=== PATIENT | female | born 1945 | race Caucasian/White ===

== ENCOUNTER 2017-05-28 10:42 | Day surgery (SDC) | payer MEDICARE, BC ==
[2017-05-28] VITALS (7 sets, daily range): BP systolic 139–161; BP diastolic 56–69
[~2017-05-28] VITALS: Ht 154.9 cm; Wt 68.0 kg
--- NOTE | 2017-05-28 10:17 | Pre-Procedure Note/Attestation ---
Pre-Procedure Note/Attestation Complete Prior to Procedure Planned Procedure: left - Removal of cataract and placement of intraocular lens , left eye Procedure Narrative: Removal of cataract and placement of intraocular lens, left eye Indications for Procedure Pre-Operative Diagnosis: Cataract, nuclear, left eye Attestation I attest that I discussed the nature of the procedure; its benefits; risks and complications; and alternatives (and the risks and benefits of such alternatives ), prior to the procedure, with the patient (or the patient's legal public utilities sales representative). I attest that, if there was a reasonable possibility of needing a blood transfusion, the patient (or the patient's legal public utilities sales representative) was given the [place] [employer] [facility] standardized written summary, pursuant to the [place] Blood Safety Act ([place] Health and Safety Code # 1645, as amended). I attest that I re-evaluated the patient just prior to the surgery and that there has been no change in the patient's H&P, except as documented below: Regan Suggs MD May 28, 2017 10:17
[~2017-05-28 10:42] MED LIST: ALLOPURINOL100 M1 ORAL; AMLODIPINE BESYL5 MG ORAL; BSS 15ml BTL ONE; BSS 500ml btl ONE; Dexamethasone 4mg/ml vial ONE; EPINEPHrine 1mg/1ml Amp ONE; KLONOPIN1 MG ORAL; Lidocaine 1% MPF 10mg/ml 5ml ONE; Lidocaine 4% Amp ONE; Maxitrol Opth Oint 3.5gm ONE; PANTOPRAZOLE SO40 MG ORAL; Povidone-Iodine 5% opth solution ONE; Pred Forte 1% Opth Susp 1ml ONE; Sodium Hyaluronate 10 mg/ml 0.85ml ONE
[2017-05-28] MEDS ORDERED: Tetracaine 0.5% Opth Soln ONE (11:23)
[2017-05-28] MEDS ORDERED: Akten 3.5% 1ml Btl ONE (11:29)
[2017-05-28] MEDS ORDERED: Phenylephrine 10% Opth Soln 5ml ONE (11:29)
[2017-05-28] MEDS ORDERED: Cyclopentolate 1% Opth Sol ONE (11:29)
[2017-05-28] MEDS ORDERED: Flurbiprofen 0.03% Opth Sol 2.5ml ONE (11:29)
[2017-05-28] MEDS: Akten 3.5% 1ml Btl LEFT EYE SCH ×3 (11:31→12:00)
[2017-05-28] MEDS: Cyclopentolate 1% Opth Sol LEFT EYE SCH ×3 (11:31→12:01)
[2017-05-28] MEDS: Gatifloxacin Opth Solution 0.5% LEFT EYE SCH ×3 (11:32→12:01)
[2017-05-28] MEDS: Phenylephrine 10% Opth Soln 5ml LEFT EYE SCH ×3 (11:32→12:01)
[2017-05-28] MEDS: Flurbiprofen 0.03% Opth Sol 2.5ml LEFT EYE SCH ×3 (11:32→12:01)
[2017-05-28] MEDS ORDERED: CYMBALTA60 MG ORAL (11:42)
[2017-05-28] MEDS ORDERED: DiphenhydrAMINE 50mg/ml Inj ONE (12:23)
[2017-05-28] MEDS ORDERED: LR 1000ml ONE (12:30)
[2017-05-28] MEDS ORDERED: Sterile Water Irrig 1000ml IRRIG ONE (12:30)
[2017-05-28] MEDS ORDERED: fentaNYL 100 mcg/2 mL IV ONE (12:30)
[2017-05-28] MEDS ORDERED: NS Irrig 1000ml ONE (12:30)
[2017-05-28] MEDS ORDERED: Lidocaine 1% MPF 10mg/ml 5ml ONE (12:30)
--- NOTE | 2017-05-28 12:32 | Anethesia Preoperative Eval ---
Anesthesia Pre-op PMH/ROS General Date of Evaluation: May 28, 2017 Anesthesiologist: Jared ASA Score: ASA 2 Mallampati Score Class I : Soft palate, uvula, fauces, pillars visible Class II: Soft palate, uvula, fauces visible Class III: Soft palate, base of uvula visible Class IV: Only hard plate visible Mallampati Classification: Class II Surgeon: Ifeanyi Diagnosis: Left cqataract Surgical Procedure: Left cataract extraction with IOl Anesthesia History: none Family History: no anesthesia problems Allergies: Coded Allergies: LATEX (Verified Allergy, Severe, rash/itch, 05/28/17) SKIN RASH AND ITCHING PENICILLINS (Verified Allergy, Severe, rash, 01/09/14) CEPHALOSPORINS (Verified Allergy, Unknown, family hx of stops breathing, ) Uncoded Allergies: cephalosporin (Allergy, Unknown, 05/28/17) FAMILY HX OF STOP BREATHING Medications: see eMAR Past Medical History Cardiovascular: Reports: HTN, other - HLD, Denies: CAD, [place], arrhythmia, valve dz Pulmonary: Denies: COPD, JEFF, asthma, other Gastrointestinal/Genitourinary: Reports: GERD, Denies: CRI, ESRD, other Neurologic/Psychiatric: Reports: depression/anxiety, Denies: CVA, TIA, dementia, other Endocrine: Reports: hypothyroidism, Denies: DM, other, steroids HEENT: Denies: LUMBEE (L), L[place] (R), cataract (L), cataract (R), glaucoma, other Hematology/Immune: Reports: anemia, Denies: DVT, bleeding disorder, other Musculoskeletal/Integumentary: Reports: OA, Denies: DDD, DJD, RA, edema, other PSxH Narrative: T&A, right cataract, ovarian cystectomy Anesthesia Pre-op Phys. Exam Physician Exam Last Vital Signs Date Time Temp Pulse Resp B/P Pulse Ox O2 Delivery O2 Flow Rate FiO2 05/28/17 12:05 98.2 58 20 144/56 96 Room Air Constitutional: NAD Cardiovascular: RRR Respiratory: CTA Airway Exam Mallampati Score: Class II MO: limited ROM: limited Anesthesia Pre-op A/P Labs see chart Studies Pre-op Studies: EKG - sr Risk Assessment & Plan Assessment: ASA II Plan: MAC Status Change Before Surgery: No Pre-Antibiotics Drug: N/A BEVERLY SEVILLA M.D. May 28, 2017 12:32
--- NOTE | 2017-05-28 12:33 | Immediate Post-Op Evaluation ---
Immediate Post-Op Evalulation Immediate Post-Op Evalulation Procedure: Left cataract extraction with IOL Date of Evaluation: May 28, 2017 Time of Evaluation: 13:40 IV Fluids: 200 Blood Products: 0 Estimated Blood Loss: 0 Urinary Output: 0 Blood Pressure Systolic: 161 Blood Pressure Diastolic: 58 Pulse Rate: 62 Respiratory Rate: 19 O2 Sat by Pulse Oximetry: 95 Temperature (Fahrenheit): 97.7 Pain Score (1-10): 0 Nausea: No Vomiting: No Complications 0 Patient Status: awake, reacts, patent, none Hydration Status: adequate Drug: N/a BEVERLY SEVILLA M.D. May 28, 2017 12:33
--- NOTE | 2017-05-28 13:38 | 48 Hour Post Anesthesia Eval ---
Post Anesthesia Evaluation Procedure: Left cataract extraction with IOL Date of Evaluation: May 28, 2017 Blood Pressure Systolic: 148 0: 65 Pulse Rate: 61 Respiratory Rate: 18 Temperature (Fahrenheit): 98 O2 Sat by Pulse Oximetry: 97 Airway: patent Nausea: No Vomiting: No Pain Intensity: 0 Hydration Status: adequate Cardiopulmonary Status: at baseline Mental Status/LOC: patient returned to baseline Post-Anesthesia Complications: 0 Follow-up care needed: ready to discharge BEVERLY SEVILLA M.D. May 28, 2017 13:38
--- NOTE | 2017-05-28 13:49 | Discharge Instructions ---
Discharge Instructions Discharge Instructions Follow Up Orders Wear shield at all times except to place eye drops Continue preop eye drops Followup tomorrow in Dr Suggs's office For Congestive Heart Failure Reminder Report to your physician any weight gain of 5 pounds or more in one week. Regan Suggs MD May 28, 2017 13:49
--- NOTE | 2017-05-28 15:06 | Brief Operative Note ---
Immediate Post Operative Note Operative Note Pre-op Diagnosis: Cataract, nuclear, left eye Procedure: phaco pc iol, OS Post-op Diagnosis: +3-4 nuclear sclerosis, +3-4 posterior subcapsular cataract, +3 cortical cataract Surgeon: Amparo Suggs MD Anesthesiologist: Dr Perkins Anesthesia: local, MAC Specimen: none Complications: none Estimated Blood Loss: minimal Implant(s) used?: Yes - yaphank [id number] 21.5 Regan Suggs MD May 28, 2017 15:06
--- NOTE | 2017-05-29 01:02 | Operative Note - Dictated ---
DATE OF OPERATION: 05/28/2017 SURGEON: Regan Suggs M.D. CREW SCHEDULER: None. ANESTHESIOLOGIST: Dr. Perkins. ANESTHESIA: Local/standby/monitored anesthesia care. PREOPERATIVE DIAGNOSIS: Cataract, nuclear, left eye. POSTOPERATIVE DIAGNOSIS: Cataract, nuclear, left eye. PROCEDURE: 1. Phacoemulsification of cataract, left eye. 2. Placement of posterior chamber intraocular lens, left eye (model Haq, [id number], power 21.5). SPECIMENS: None. COMPLICATIONS: None. INDICATIONS FOR SURGERY: The patient has had the painless progressive decrease in visual acuity in the left eye secondary to cataract. The patient understands risks of surgery including infection, bleeding, need for further surgery, loss of vision, no improvement in vision, loss of the eye, loss of life, glaucoma, retinal detachment, understands these risks and elects to proceed with surgery. FINDINGS: The patient had a +3 to 4 nuclear sclerotic cataract as well as a +3 to 4 posterior subcapsular cataract and a +3 cortical cataract. Operative Note: After informed consent was obtained, the patient was brought into the operating room placed in the supine position. Cardiac and respiratory monitors were attached. A time-out was performed and all criteria were met and everyone in the room agreed. The eye was then draped and prepped in a sterile manner for ocular surgery. A lid speculum was placed in the eye. A 1% lidocaine preservative-free was injected at the approximate 2 o'clock limbus. A conjunctiva peritomy from approximately 1 o'clock to 2:30 was made and dissected posteriorly. Hemostasis was maintained with bipolar cautery. A 2.6 mm limbal incision was made centered approximately 2 o'clock and dissected anteriorly. Paracentesis was made at approximately 5:30 and Shugarcaine was injected into the anterior chamber followed by Healon. The anterior chamber was then entered using a 2.6 mm keratome through the limbal incision. An anterior capsulorrhexis was then performed. Hydrodissection and hydrodelineation of the lens was then performed. The lens was then phacoemulsified using divide and conquer four-quadrant technique. Residual cortical material was then aspirated. Healon was injected into the anterior chamber and capsular bag. The lens was taken from its package, placed into the cartridge and the tip of the cartridge was placed through the limbal incision. The lens was injected into the capsular bag and centered nicely with a [place] hook. The optic and both haptics were in the capsular bag. Healon was then aspirated from the anterior chamber and capsular bag and again the optic and haptics were noted to be in the capsular bag. The limbal incision was closed with 10-0 nylon interrupted suture. The knot was rotated and buried. Care was taken during the entire procedure not to touch the endothelium. The wounds were checked and found to be watertight. The conjunctiva was then closed with forceps cautery. The lid speculum and drapes were removed from the eye. Drops of Pred Forte and moxifloxacin were applied to the eye followed by Maxitrol ointment and a shield. The patient tolerated the procedure well and left the operating room in awake, alert and stable condition. Regan Suggs M.D. DR: SYLVIA JOB#: [id number] CC:
== END 2017-05-28 14:50 | disposition home or self-care (01) ==
LOC: SUR 10:42
DX: H25.812 Combined forms of age-related cataract, left eye (principal); E78.5 Hyperlipidemia, unspecified; E66.3 Overweight; M26.609 Unspecified temporomandibular joint disorder, unspecified side; E06.3 Autoimmune thyroiditis; E21.3 Hyperparathyroidism, unspecified; M48.00 Spinal stenosis, site unspecified; I10 Essential (primary) hypertension; K21.9 Gastro-esophageal reflux disease without esophagitis; F32.9 Major depressive disorder, single episode, unspecified; F41.9 Anxiety disorder, unspecified; E03.9 Hypothyroidism, unspecified; M19.90 Unspecified osteoarthritis, unspecified site; D64.9 Anemia, unspecified; Z88.0 Allergy status to penicillin; Z88.8 Allergy status to other drugs, medicaments and biological substances; Z91.040 Latex allergy status
CPT/HCPCS: 66984; J0171; J1100; J1200; J3010; J7120; V2632; 94003; 94150